=== PATIENT | female | born 1980 | race African-American/Black ===

== ENCOUNTER 2017-03-22 05:52 | Emergency (ER) | payer SELFPAY ==
[2017-03-22 06:37] LABS: #Basophils 0.1 thou/uL (0.0-0.2); #Eosinphils 0.2 thou/uL (0.0-0.7); #Lymphocytes 1.9 thou/uL (1.20-3.40); #Monocytes 0.4 thou/uL (0.11-0.59); #Neutrophils 3.5 thou/uL (1.40-6.50); %Basophils 1.3 % (0.0-1.0); %Eosinophils 3.1 % (0.0-10.0); %Lymphocytes 31.1 % (21.0-51.0); %Monocytes 6.9 % (0.0-10.0); %Neutrophils 57.7 % (42.0-75.0); Hemoglobin 13.5 g/dL (12.0-16.0); Mean Corpuscular HGB CONC 32.6 g/dL (32.0-36.0); Mean Corpuscular Hemoglobin 28.1 pg (27.0-31.0); Mean Corpuscular Volume 85.9 fl (81.0-99.0); Mean Platelet Volume 7.7 fL (7.4-10.4); Platelet Count 268 thou/uL (130-400); RBC Distribution Width 13.5 % (11.5-14.5)
[2017-03-22] MEDS ORDERED: Azithromycin 250 MG TAB PO SCH (07:30)
== END 2017-03-22 07:21 | disposition home or self-care (01) ==
LOC: BURERS 05:52
DX: O02.1 Missed abortion (principal); I10 Essential (primary) hypertension
CPT/HCPCS: 36415; 84702; 85025; 87480; 87510; 87660; 99284

== ENCOUNTER 2017-08-21 21:23 | Emergency (ER) | payer SELFPAY ==
[2017-08-21] MEDS ORDERED: Benzonatate 100 MG CAP ONE (21:58)
[2017-08-21] MEDS ORDERED: AMOXicillin 250 MG CAP ONE (21:58)
[2017-08-21] MEDS ORDERED: predniSONE 20 MG TAB ONE (21:58)
== END 2017-08-21 22:03 | disposition home or self-care (01) ==
LOC: BURERS 21:23
DX: J01.90 Acute sinusitis, unspecified (principal); I10 Essential (primary) hypertension; Z79.899 Other long term (current) drug therapy
CPT/HCPCS: 99283; J7506

== ENCOUNTER 2018-04-29 04:11 | Emergency (ER) | payer OTHER, SELFPAY ==
[2018-04-29] MEDS ORDERED: Ibuprofen 200 MG TAB ONE (04:34)
== END 2018-04-29 04:40 | disposition home or self-care (01) ==
LOC: BURERS 04:11
DX: M62.830 Muscle spasm of back (principal); I10 Essential (primary) hypertension; Z79.82 Long term (current) use of aspirin; Z79.899 Other long term (current) drug therapy
CPT/HCPCS: 99283

== ENCOUNTER → 2018-08-15 | Emergency (ER) | payer MEDICAID, OTHER ==
[2018-08-15 03:02] LABS: BHCG - Serum POSITIVE (NEGATIVE); Pregs Control Background? CLEAR/WHITE (CLR/WHITE); Pregs Control Bar Appear? YES (CONTROL BAR)
== END ==
LOC: BURERS 02:14
DX: O09.521 Supervision of elderly multigravida, first trimester (principal); O20.0 Threatened abortion; Z3A.01 Less than 8 weeks gestation of pregnancy
CPT/HCPCS: 84702; 84703; 99283

== ENCOUNTER 2018-12-29 00:27 | Emergency (ER) | payer OTHER, SELFPAY | END 2018-12-29 00:52 | disposition home or self-care (01) | LOC: BURERS 00:27 | DX: R60.0 Localized edema (principal); I10 Essential (primary) hypertension; G62.9 Polyneuropathy, unspecified | CPT/HCPCS: 99283 ==

== ENCOUNTER 2019-02-04 14:46 | Emergency (ER) | payer OTHER | END 2019-02-04 15:21 | disposition home or self-care (01) | LOC: BURERS 14:46 | DX: R11.2 Nausea with vomiting, unspecified (principal); R19.7 Diarrhea, unspecified; I10 Essential (primary) hypertension; Z79.899 Other long term (current) drug therapy | CPT/HCPCS: 99283 ==

== ENCOUNTER 2019-05-26 22:43 | Emergency (ER) | payer OTHER ==
[2019-05-26 23:54] LABS: #Basophils 0.1 thou/uL (0.0-0.2); #Eosinphils 0.2 thou/uL (0.0-0.7); #Lymphocytes 2.3 thou/uL (1.20-3.40); #Monocytes 0.4 thou/uL (0.11-0.59); #Neutrophils 3.4 thou/uL (1.40-6.50); %Basophils 1.3 % (0.0-1.0); %Eosinophils 3.1 % (0.0-10.0); %Lymphocytes 36.4 % (21.0-51.0); %Monocytes 6.5 % (0.0-10.0); %Neutrophils 52.7 % (42.0-75.0); Hemoglobin 11.9 g/dL (12.0-16.0); Mean Corpuscular HGB CONC 30.9 g/dL (32.0-36.0); Mean Corpuscular Hemoglobin 26.1 pg (27.0-31.0); Mean Corpuscular Volume 84.5 fL (78.0-98.0); Mean Platelet Volume 8.4 fL (7.4-10.4); Platelet Count 265 thou/uL (130-400); RBC Distribution Width 14.4 % (11.5-14.5); Red Blood Cell (RBC) Count 4.56 mill/uL (4.20-5.40); White Blood Cell (WBC) Count 6.4 thou/uL (4.8-10.8)
[2019-05-27 00:07] LABS: ALT (SGPT) 13 U/L (8-55); AST (SGOT) 12 U/L (5-34); Albumin 3.7 g/dL (3.5-5.0); Alkaline Phosphatase 44 U/L (40-110); Anion Gap 13 mmol/L (10-20); BUN (Urea Nitrogen) 14 mg/dL (7.0-18.7); Bilirubin, Total 0.3 mg/dL (0.2-1.2); Calc. Creatinine Clearance 0 mL/min (70-130); Calcium 8.7 mg/dL (7.8-10.44); Carbon Dioxide 26 mmol/L (22-29); Chloride 104 mmol/L (98-107); Estimated GFR-MDRD 66; Globulin 3.4 g/dL (2.4-3.5); Glucose 108 mg/dL (70-105); Potassium 3.9 mmol/L (3.5-5.1); Protein, Total 7.1 g/dL (6.0-8.3); Sodium 139 mmol/L (136-145)
--- NOTE | 2019-05-27 07:26 | RAD ---
PORTABLE CHEST: Date: 05/26/2019 An AP portable film at 2307 hours is compared with the 03/08/2013 study. The heart is normal in size and the lungs are clear. There is no infiltrate, effusion, or vascular co ngestion. The mediastinum appears normal. The trachea is midline. IMPRESSION: No acute thoracic findings. POS: HOME
--- NOTE | 2019-05-27 07:27 | RAD ---
LEFT ANKLE 3 VIEWS: Date: 05/26/2019 No fracture seen. The articular surfaces of the ankle joint are smooth. Some mild soft tissue swellin g is seen around it. A small calcaneal spur is present and there is some bony spurring in the joints between the navicular and other tarsal bones. There is ossification at the insertion of the Achilles tendon. IMPRESSION: No acute findings around the ankle joint, other than soft tissue swelling. POS: HOME
== END 2019-05-27 00:25 | disposition home or self-care (01) ==
LOC: BURERS 22:43
DX: M25.572 Pain in left ankle and joints of left foot (principal); G89.29 Other chronic pain; R53.1 Weakness; I10 Essential (primary) hypertension; Z79.899 Other long term (current) drug therapy
CPT/HCPCS: 36415; 71045; 80053; 83880; 84484; 85025; 93005; 96360

== ENCOUNTER 2020-02-15 16:03 | Emergency (ER) | payer OTHER ==
[2020-02-15] MEDS ORDERED: AMOXicillin 250 MG CAP ONE (16:50)
== END 2020-02-15 16:55 | disposition home or self-care (01) ==
LOC: BURERS 16:03
DX: J02.9 Acute pharyngitis, unspecified (principal); I10 Essential (primary) hypertension; Z79.899 Other long term (current) drug therapy
CPT/HCPCS: 99283

== ENCOUNTER 2020-02-23 09:08 | Emergency (ER) | payer OTHER | END 2020-02-23 09:35 | disposition home or self-care (01) | LOC: BURERS 09:08 | DX: R05 Cough (principal); R19.7 Diarrhea, unspecified; I10 Essential (primary) hypertension; E66.9 Obesity, unspecified; Z79.899 Other long term (current) drug therapy | CPT/HCPCS: 99283 ==

== ENCOUNTER 2020-04-03 14:11 | Emergency (ER) | payer OTHER ==
[2020-04-03 14:59] LABS: Bilirubin Negative (Negative); Blood, Urine Moderate (Negative); Clarity Clear (Clear); Glucose, Urine (Dipstick) Negative (Negative); Ketone, Urine Negative (Negative); Leukocyte Negative (Negative); Nitrite Negative (Negative); Protein, Urine (Dipstick) Negative (Neg-Trace); Specific Gravity, Urine 1.025 (1.005-1.030); Urobilinogen 0.2 mg/dL (Less than 2); pH, Urine 5.5 (5.0-9.0)
[2020-04-03 15:08] LABS: Bacteria/HPF Rare-Few HPF (None Seen); RBC/HPF 0-3 HPF (0-3); WBC/HPF 0-3 HPF (0-3)
[2020-04-03 15:09] LABS: Pregnancy Test - Urine (BHCG) Negative (Negative); Pregu Control Background? CLEAR/WHITE (CLR/WHITE); Pregu Control Bar Appear? YES (CONTROL BAR); Specific Gravity 1.025 (1.002-1.036)
[2020-04-04 08:17] LABS: SARS-CoV-2 MS2 Positive; SARS-CoV-2 N Gene Positive; SARS-CoV-2 S Gene Positive; SARS-CoV-2 by NAA DETECTED (NotDetected); SARS-CoV-2 orf1ab Positive
== END 2020-04-03 15:26 | disposition home or self-care (01) ==
LOC: BURERS 14:11
DX: U07.1 COVID-19 (principal); I10 Essential (primary) hypertension; Z79.899 Other long term (current) drug therapy
CPT/HCPCS: 81003; 81015; 81025; 87077; 87086; 87186; 87635; 99283; U0003

== ENCOUNTER 2020-04-13 19:36 | Emergency (ER) | payer OTHER ==
[2020-04-13] MEDS ORDERED: cefTRIAXone\\ROCEPHIN 2 GM VIAL ONE (21:02)
--- NOTE | 2020-04-13 21:05 | RAD ---
2 VIEWS CHEST: Date: 04/13/2020 PROVIDED CLINICAL HISTORY: Cough. FINDINGS: Comparison with 05/26/2019. Evaluation is limited by body habitus. The cardiac silhouette is within normal limits. There are patchy bilateral air space opacities. There is no lobar consolidation, pleural fluid, or pneumothorax apparent. IMPRESSION: Patchy bilateral air space disease. Correlate for atypical pneumonia such as COVID pneumonia. POS: [facility]
[2020-04-13 21:11] LABS: #Basophils 0.1 thou/uL (0.0-0.2); #Lymphocytes 1.2 thou/uL (1.20-3.40); #Monocytes 0.4 thou/uL (0.11-0.59); #Neutrophils 5.5 thou/uL (1.40-6.50); %Basophils 0.8 % (0.0-1.0); %Eosinophils 0.1 % (0.0-10.0); %Lymphocytes 16.4 % (21.0-51.0); %Monocytes 5.8 % (0.0-10.0); %Neutrophils 76.9 % (42.0-75.0); Hemoglobin 13.5 g/dL (12.0-16.0); Mean Corpuscular HGB CONC 32.1 g/dL (32.0-36.0); Mean Corpuscular Hemoglobin 26.1 pg (27.0-31.0); Mean Corpuscular Volume 81.4 fL (78.0-98.0); Platelet Count 259 thou/uL (130-400); RBC Distribution Width 14.2 % (11.5-14.5); Red Blood Cell (RBC) Count 5.18 mill/uL (4.20-5.40); White Blood Cell (WBC) Count 7.2 thou/uL (4.8-10.8)
[2020-04-13 21:23] LABS: ALT (SGPT) 60 U/L (8-55); AST (SGOT) 49 U/L (5-34); Alkaline Phosphatase 50 U/L (40-110); Anion Gap 16 mmol/L (10-20); BUN (Urea Nitrogen) 11 mg/dL (7.0-18.7); Bilirubin, Total 0.6 mg/dL (0.2-1.2); Calc. Creatinine Clearance 0 mL/min (70-130); Calcium 8.6 mg/dL (7.8-10.44); Carbon Dioxide 20 mmol/L (22-29); Chloride 104 mmol/L (98-107); Estimated GFR-MDRD 54; Glucose 141 mg/dL (70-105); Potassium 3.4 mmol/L (3.5-5.1); Sodium 137 mmol/L (136-145)
== END 2020-04-13 23:08 | disposition home or self-care (01) ==
LOC: BURERS 19:36
DX: U07.1 COVID-19 (principal); J12.89 Other viral pneumonia; I10 Essential (primary) hypertension
CPT/HCPCS: 71046; 80053; 83605; 84484; 85025; 87040; 93005; 96365; 96366; 96367; J0696; J1956

== ENCOUNTER 2021-01-28 08:46 | Emergency (ER) | payer OTHER ==
[2021-01-28 09:24] LABS: Bilirubin Negative (Negative); Blood, Urine Large (Negative); Clarity Cloudy (Clear); Glucose, Urine (Dipstick) Negative (Negative); Ketone, Urine Negative (Negative); Leukocyte Moderate (Negative); Nitrite Negative (Negative); Protein, Urine (Dipstick) 100 mg/dL (Neg-Trace); Urobilinogen 0.2 mg/dL (Less than 2)
[2021-01-28] MEDS ORDERED: Phenazopyridine HCl 97.5 MG TABLET ONE (09:24)
[2021-01-28 09:28] LABS: RBC/HPF Greater than 50 HPF (0-3)
[2021-01-28 09:29] LABS: Bacteria/HPF 1+ HPF (None Seen); Mucous/LPF Rare LPF (<2+); Squamous Epithelial 0-3 HPF (0-3)
[2021-01-28] MEDS ORDERED: Sulfameth/Trimethoprim DS 800-160mg TAB ONE (09:41)
== END 2021-01-28 09:45 | disposition home or self-care (01) ==
LOC: BURERS 08:46
DX: N39.0 Urinary tract infection, site not specified (principal); I10 Essential (primary) hypertension
CPT/HCPCS: 81003; 81015; 87077; 87086; 87186; 99283

== ENCOUNTER 2021-03-30 07:23 | Emergency (ER) | payer OTHER | END 2021-03-30 08:15 | disposition home or self-care (01) | LOC: BURERS 07:23 | DX: H65.91 Unspecified nonsuppurative otitis media, right ear (principal); I10 Essential (primary) hypertension | CPT/HCPCS: 99283 ==

== ENCOUNTER 2021-05-04 15:52 | Emergency (ER) | payer OTHER ==
[2021-05-04 16:22] LABS: Bilirubin Negative (Negative); Blood, Urine Negative (Negative); Clarity Cloudy (Clear); Glucose, Urine (Dipstick) Negative (Negative); Ketone, Urine Negative (Negative); Leukocyte Negative (Negative); Nitrite Negative (Negative); Protein, Urine (Dipstick) Negative (Neg-Trace); Specific Gravity, Urine 1.025 (1.005-1.030); Urobilinogen 0.2 mg/dL (Less than 2); pH, Urine 5.5 (5.0-9.0)
== END 2021-05-04 16:55 | disposition home or self-care (01) ==
LOC: BURERS 15:52
DX: I10 Essential (primary) hypertension (principal); R30.0 Dysuria; Z91.14 Patient's other noncompliance with medication regimen; Z79.899 Other long term (current) drug therapy
CPT/HCPCS: 81003; 87086; 99283

== ENCOUNTER 2022-03-27 23:37 | Emergency (ER) | payer OTHER | END 2022-03-28 00:07 | disposition home or self-care (01) | LOC: BURERS 23:37 | DX: H60.503 Unspecified acute noninfective otitis externa, bilateral (principal); J06.9 Acute upper respiratory infection, unspecified; I10 Essential (primary) hypertension | CPT/HCPCS: 99283 ==

== ENCOUNTER 2022-10-06 23:32 | Emergency (ER) | payer OTHER, SELFPAY ==
[2022-10-06] MEDS ORDERED: Amlodipine 5 MG TAB ONE (23:51)
[2022-10-07 00:06] LABS: #Basophils 0.1 thou/uL (0.0-0.2); #Eosinphils 0.2 thou/uL (0.0-0.7); #Lymphocytes 2.1 thou/uL (1.20-3.40); #Monocytes 0.5 thou/uL (0.11-0.59); #Neutrophils 4.6 thou/uL (1.40-6.50); %Basophils 0.9 % (0.0-1.0); %Eosinophils 2.9 % (0.0-10.0); %Lymphocytes 28.1 % (21.0-51.0); %Monocytes 6.7 % (0.0-10.0); %Neutrophils 61.4 % (42.0-75.0); Hemoglobin 12.8 g/dL (12.0-16.0); Mean Corpuscular HGB CONC 32.2 g/dL (32.0-36.0); Mean Corpuscular Hemoglobin 26.4 pg (27.0-31.0); Mean Platelet Volume 7.9 fL (7.4-10.4); Platelet Count 237 10x3/uL (130-400); RBC Distribution Width 15.1 % (11.5-14.5); Red Blood Cell (RBC) Count 4.84 mill/uL (4.20-5.40); White Blood Cell (WBC) Count 7.4 10x3/uL (4.8-10.8)
[2022-10-07 00:23] LABS: ALT (SGPT) 18 U/L (8-55); AST (SGOT) 16 U/L (5-34); Albumin 3.7 g/dL (3.5-5.0); Alkaline Phosphatase 57 U/L (40-110); Anion Gap 13 mmol/L (10-20); BUN (Urea Nitrogen) 13 mg/dL (7.0-18.7); Bilirubin, Total 0.2 mg/dL (0.2-1.2); Calc. Creatinine Clearance 0 mL/min (70-130); Calcium 8.6 mg/dL (7.8-10.44); Carbon Dioxide 22 mmol/L (22-29); Chloride 108 mmol/L (98-107); Estimated GFR 58; Globulin 3.4 g/dL (2.4-3.5); Glucose 163 mg/dL (70-105); Potassium 3.8 mmol/L (3.5-5.1); Protein, Total 7.1 g/dL (6.0-8.3); Sodium 139 mmol/L (136-145)
== END 2022-10-07 01:00 | disposition home or self-care (01) ==
LOC: BURERS 23:32
DX: H60.91 Unspecified otitis externa, right ear (principal); J06.9 Acute upper respiratory infection, unspecified; I10 Essential (primary) hypertension
CPT/HCPCS: 71045; 80053; 83880; 84484; 85025; 93005

== ENCOUNTER 2023-05-08 09:50 | Emergency (ER) | payer SELFPAY ==
[2023-05-08 11:07] LABS: SARS-CoV-2 NAA Rapid Test DETECTED (NotDetected)
== END 2023-05-08 11:56 | disposition home or self-care (01) ==
LOC: BURERS 09:50
DX: U07.1 COVID-19 (principal); I10 Essential (primary) hypertension
CPT/HCPCS: 71045; 87081; 87430

== ENCOUNTER 2024-03-14 10:04 | Emergency (ER) | payer OTHER | END 2024-03-14 11:18 | disposition home or self-care (01) | LOC: BURERS 10:04 | DX: J18.9 Pneumonia, unspecified organism (principal); I10 Essential (primary) hypertension; J32.9 Chronic sinusitis, unspecified; E66.01 Morbid (severe) obesity due to excess calories; Z79.899 Other long term (current) drug therapy | CPT/HCPCS: 71045 ==

== ENCOUNTER 2024-05-31 08:04 | Emergency (ER) | payer OTHER ==
[2024-05-31] MEDS ORDERED: Hydrochlorothiazide 25 MG TAB ONE (08:28)
[2024-05-31] MEDS ORDERED: Amlodipine 5 MG TAB ONE (08:28)
[2024-05-31] MEDS ORDERED: hydrALAZINE 20 MG/ML VIAL ONE (08:28)
[2024-05-31 08:35] LABS: #Basophils 0.1 thou/uL (0.0-0.2); #Eosinophils 0.2 thou/uL (0.0-0.7); #Lymphocytes 1.6 thou/uL (1.20-3.40); #Monocytes 0.4 thou/uL (0.11-0.59); #Neutrophils 4.8 thou/uL (1.40-6.50); %Basophils 1.7 % (0.0-1.0); %Eosinophils 2.9 % (0.0-10.0); %Lymphocytes 22.5 % (21.0-51.0); %Monocytes 5.8 % (0.0-10.0); %Neutrophils 67.2 % (42.0-75.0); Hematocrit 37.9 % (36.0-47.0); Hemoglobin 12.1 g/dL (12.0-16.0); Mean Corpuscular Hemoglobin 25.1 pg (27.0-31.0); Mean Corpuscular Volume 78.4 fl (78.0-98.0); Mean Platelet Volume 8.1 fL (7.4-10.4); Platelet Count 286 10x3/uL (130-400); Red Blood Cell (RBC) Count 4.84 mill/uL (4.20-5.40); White Blood Cell (WBC) Count 7.2 10x3/uL (4.8-10.8)
[2024-05-31 08:49] LABS: ALT (SGPT) 24 U/L (8-55); AST (SGOT) 20 U/L (5-34); Albumin 3.2 g/dL (3.5-5.0); Alkaline Phosphatase 49 U/L (40-110); Anion Gap 13 mmol/L (10-20); BUN (Urea Nitrogen) 13 mg/dL (7.0-18.7); Bilirubin, Total 0.6 mg/dL (0.2-1.2); Calc. Creatinine Clearance 0 mL/min (70-130); Calcium 8.7 mg/dL (7.8-10.44); Carbon Dioxide 23 mmol/L (22-29); Chloride 105 mmol/L (98-107); Estimated GFR 77; Globulin 3.6 g/dL (2.4-3.5); Glucose 200 mg/dL (70-105); Potassium 3.7 mmol/L (3.5-5.1); Protein, Total 6.8 g/dL (6.0-8.3); Sodium 137 mmol/L (136-145)
[2024-05-31 08:51] LABS: Troponin I 0.047 ng/mL (< 0.028)
[2024-05-31] MEDS ORDERED: Aspirin Chewable 81 MG TAB ONE (08:53)
[2024-05-31] MEDS ORDERED: cloNIDine 0.1 MG TAB ONE ×3 (09:13→22:15)
[2024-05-31] MEDS ORDERED: Amoxicillin/Potassium Clav 875 MG TAB ONE ×2 (09:17→20:44)
[2024-05-31 09:56] LABS: Bilirubin Negative (Negative); Blood, Urine Negative (Negative); Clarity Clear (Clear); Glucose, Urine (Dipstick) Negative (Negative); Ketone, Urine Negative (Negative); Leukocyte Negative (Negative); Nitrite Negative (Negative); Protein, Urine (Dipstick) Trace mg/dL (Neg-Trace); Urobilinogen 0.2 mg/dL (Less than 2)
[2024-05-31 10:03] LABS: CAUTI Indications for Culture Dysuria,urgency,freq; RBC/HPF 0-3 HPF (0-3); WBC/HPF 0-3 HPF (0-3)
[2024-05-31 10:04] LABS: Bacteria/HPF Rare-Few HPF (None Seen); Mucous/LPF Rare LPF (<2+)
[2024-05-31 10:05] LABS: Amphetamine Not Detected (NotDetected); Barbiturates Screen Not Detected (NotDetected); Benzodiazepine Screen Not Detected (NotDetected); Cocaine Metabolite Screen Not Detected (NotDetected); Methadone Not Detected (NotDetected); Methamphetamine Not Detected (NotDetected); Opiate Screen Not Detected (NotDetected); Oxycodone Screen Not Detected (NotDetected); Phencyclidine (PCP) Not Detected (NotDetected); THC/Cannabinoid Screen Not Detected (NotDetected); Tricyclic Screen Not Detected (NotDetected)
[2024-05-31 10:06] LABS: Urine Culture Reflex No No
[2024-05-31] MEDS ORDERED: Iopamidol 370 76% 100 ML VIAL ONE (10:53)
[2024-05-31 12:02] LABS: Troponin I 0.035 ng/mL (< 0.028)
[2024-05-31 12:23] LABS: Hemoglobin A1c 7.6 % (4.0-6.0)
[2024-05-31] MEDS ORDERED: Furosemide 40 MG (4 mL) VIAL ONE (13:44)
[2024-05-31 14:50] LABS: Troponin I 0.039 ng/mL (< 0.028)
[2024-05-31] MEDS ORDERED: Ibuprofen 800 MG TAB ONE (21:11)
[2024-05-31 22:22] LABS: Troponin I 0.043 ng/mL (< 0.028)
[2024-05-31] MEDS ORDERED: metFORMIN 500 MG TAB PO SCH (22:30)
[2024-06-01] MEDS ORDERED: Amlodipine 5 MG TAB ONE (06:07)
[2024-06-01] MEDS ORDERED: metFORMIN 500 MG TAB PO SCH ×2 (06:15→17:00)
[2024-06-01] MEDS ORDERED: Furosemide 20 MG TAB PO SCH (06:30)
[2024-06-01 06:50] LABS: #Basophils 0.1 thou/uL (0.0-0.2); #Eosinophils 0.3 thou/uL (0.0-0.7); #Lymphocytes 1.7 thou/uL (1.20-3.40); #Monocytes 0.5 thou/uL (0.11-0.59); #Neutrophils 4.3 thou/uL (1.40-6.50); %Eosinophils 4.3 % (0.0-10.0); %Lymphocytes 24.1 % (21.0-51.0); %Monocytes 7.3 % (0.0-10.0); %Neutrophils 62.2 % (42.0-75.0); Hemoglobin 11.9 g/dL (12.0-16.0); Mean Corpuscular HGB CONC 32.2 g/dL (32.0-36.0); Mean Corpuscular Hemoglobin 25.1 pg (27.0-31.0); Mean Corpuscular Volume 77.9 fl (78.0-98.0); Mean Platelet Volume 7.8 fL (7.4-10.4); Platelet Count 276 10x3/uL (130-400); RBC Distribution Width 14.1 % (11.5-14.5); Red Blood Cell (RBC) Count 4.76 mill/uL (4.20-5.40); White Blood Cell (WBC) Count 6.9 10x3/uL (4.8-10.8)
[2024-06-01 06:54] LABS: ALT (SGPT) 26 U/L (8-55); AST (SGOT) 23 U/L (5-34); Albumin 3.3 g/dL (3.5-5.0); Alkaline Phosphatase 50 U/L (40-110); Anion Gap 14 mmol/L (10-20); BUN (Urea Nitrogen) 13 mg/dL (7.0-18.7); Bilirubin, Total 0.6 mg/dL (0.2-1.2); Calc. Creatinine Clearance 0 mL/min (70-130); Carbon Dioxide 22 mmol/L (22-29); Chloride 101 mmol/L (98-107); Estimated GFR 68; Globulin 3.6 g/dL (2.4-3.5); Glucose 175 mg/dL (70-105); Potassium 3.8 mmol/L (3.5-5.1); Protein, Total 6.9 g/dL (6.0-8.3); Sodium 133 mmol/L (136-145)
[2024-06-01 06:55] LABS: Troponin I 0.034 ng/mL (< 0.028)
[2024-06-01] MEDS ORDERED: Amoxicillin/Potassium Clav 875 MG TAB ONE (12:00)
[2024-06-01] MEDS ORDERED: Aspirin Chewable 81 MG TAB ONE (12:00)
== END 2024-05-31 15:20 | disposition short-term general hospital (02) ==
LOC: BURERS 08:04
DX: E11.9 Type 2 diabetes mellitus without complications (principal); I16.1 Hypertensive emergency; R79.89 Other specified abnormal findings of blood chemistry; H66.91 Otitis media, unspecified, right ear
CPT/HCPCS: 36415; 36416; 71045; 71275; 80053; 80306; 81001; 83036; 83880; 84443; 84484; 85025; 85379; 87428; 93005; 96374; 96375; J0360; J1940; Q9967